=== PATIENT | female | born 1995 | race Caucasian/White ===

== ENCOUNTER 2024-12-07 20:52 | Emergency (ER) | payer MEDICAID, SELFPAY ==
[2024-12-07 20:56] VITALS: BP 125/76; PULSE 108; RESP 18; TEMP 36.8; O2SAT 98; BMI 21.2
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
[2024-12-07 21:47] LABS: HCG Qualitative,Urine Negative
[2024-12-07 22:01] VITALS: BP 109/88; PULSE 91; RESP 16; TEMP 36.8; O2SAT 96
[2024-12-08 00:05] VITALS: BP 108/73; PULSE 86; RESP 18; TEMP 36.8; O2SAT 100
== END 2024-12-08 00:05 ==
PROVIDERS: Emergency Provider Emergency Medicine
DX: Z02.89 Encounter for other administrative examinations (principal); S00.12XA Contusion of left eyelid and periocular area, initial encounter; Y04.0XXA Assault by unarmed brawl or fight, initial encounter; S19.9XXA Unspecified injury of neck, initial encounter
CPT/HCPCS: 70450; 70486; 72125; 81025; 99284